=== PATIENT | female | born 1980 | race Two or more races ===

== ENCOUNTER 2019-05-08 05:07 | Inpatient (IN) | payer BC ==
[2019-05-08] MEDS ORDERED: Butorphanol 1 MG/ML SDV IVPUSH PRN (05:11)
[2019-05-08] MEDS ORDERED: Water For Irrigation,Sterile 1,000 ML Container IRR PRN (05:11)
[2019-05-08] MEDS ORDERED: Tranexamic Acid 1,000 MG in Sodium Chloride 0.9% 100 ML IV PRN ×2 (05:11→18:44)
[2019-05-08] MEDS ORDERED: Terbutaline 1 MG/ML SDV SUBCUT PRN (05:11)
[2019-05-08] MEDS ORDERED: Nalbuphine 10 MG/1 ML Vial IVPUSH PRN ×2 (05:11→19:42)
[2019-05-08] MEDS ORDERED: Methylergonovine 0.2 MG/1 ML Amp IM PRN ×2 (05:11→18:44)
[2019-05-08] MEDS ORDERED: Sodium Chloride 0.9% 2.5 ML Syringe FLUSH PRN (05:11)
[2019-05-08] MEDS ORDERED: Ondansetron 4 MG/2 ML SDV IVPUSH PRN ×2 (05:11→18:44)
[2019-05-08] MEDS ORDERED: Misoprostol 200 MCG Tab PO PRN (05:11)
[2019-05-08] MEDS ORDERED: Sodium Chloride 0.9% 10 ML Syringe FLUSH PRN (05:11)
[2019-05-08] MEDS ORDERED: Sodium Chloride 0.9% 10 ML SDV IV PRN (05:11)
[2019-05-08] MEDS ORDERED: Lidocaine 1% 50 ML MDV INJECT PRN (05:11)
[2019-05-08] MEDS ORDERED: Carboprost Tromethamine 250 MCG/1 ML Amp IM PRN (05:11)
[2019-05-08] MEDS ORDERED: Oxytocin/0.9 % Sodium Chloride 30 UNIT/500 ML BAG IV SCH ×2 (05:15)
[2019-05-08] MEDS: Lactated Ringers 1,000 ML IV SCH ×4 (05:40→21:38)
--- NOTE | 2019-05-08 09:23 | PCM.PREANE ---
Preanesthetic Assessment - Anesthesia/Transfusion/Family Hx Anesthesia History: No Prior Anesthesia Family History of Anesthesia Reaction: No Transfusion History: No Prior Transfusion(s) - Review of Systems General: No Symptoms Pulmonary: No Symptoms Cardiovascular: No Symptoms Gastrointestinal: No Symptoms Neurological: No Symptoms Other: Reports: None - Physical Assessment Height: 4 ft 11 in Weight: 58.151 kg ASA Class: 2 Mental Status: Alert & Oriented x3 Airway Class: Mallampati = 2 Dentition: Reports: Normal Dentition Thyro-Mental Finger Breadths: 3 Mouth Opening Finger Breadths: 3 ROM/Head Extension: Full Lungs: Clear to Auscultation, Normal Respiratory Effort Cardiovascular: Regular Rate, Regular Rhythm - Lab Values: Laboratory Last Values WBC 8.64 K/uL (4.0-11.0) 05/08/19 05:40 RBC 3.83 M/uL (4.30-5.90) L 05/08/19 05:40 Hgb 11.6 g/dL (12.0-16.0) L 05/08/19 05:40 Hct 34.6 % (36.0-46.0) L 05/08/19 05:40 MCV 90.3 fL (80.0-98.0) 05/08/19 05:40 MCH 30.3 pg (27.0-32.0) 05/08/19 05:40 MCHC 33.5 g/dL (31.0-37.0) 05/08/19 05:40 RDW Std Deviation 44.1 fl (28.0-62.0) 05/08/19 05:40 RDW Coeff of Makenzie 14 % (11.0-15.0) 05/08/19 05:40 Plt Count 257 K/uL (150-400) 05/08/19 05:40 MPV 11.30 fL (7.40-12.00) 05/08/19 05:40 Nucleated RBC % 0.0 /100WBC 05/08/19 05:40 Nucleated RBCs # 0 K/uL 05/08/19 05:40 POC Glucose 77 mg/dL (60-110) 05/08/19 09:03 Blood Type B POSITIVE 05/08/19 05:40 Antibody Screen NEGATIVE 05/08/19 05:40 - Allergies Allergies/Adverse Reactions: Allergies Allergy/AdvReac Type Severity Reaction Status Date / Time No Known Allergies Allergy Verified 05/08/19 05:49 - Acknowledgements Anesthesia Type Planned: Epidural Pt an Appropriate Candidate for the Planned Anesthesia: Yes Alternatives and Risks of Anesthesia Discussed w Pt/Guardian: Yes Pt/Guardian Understands and Agrees with Anesthesia Plan: Yes PreAnesthesia Questionnaire HEENT History: Reports: None Cardiovascular History: Reports: None Respiratory History: Reports: None Gastrointestinal History: Reports: GERD, Hemorrhoids Genitourinary History: Reports: Other (See Below) Other Genitourinary History: occasional UTI for a while, but not recently 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: , Spontaneous : 3 Para: 1 LMP (Approximate): Musculoskeletal History: Reports: None Neurological History: Reports: None Psychiatric History: Reports: None Endocrine/Metabolic History: Reports: Diabetes, Gestational Hematologic History: Reports: None Immunologic History: Reports: None Oncologic (Cancer) History: Reports: None Dermatologic History: Reports: Other (See Below) Other Dermatologic History: moles - Infectious Disease History Infectious Disease History: Reports: Chicken Pox - Past Surgical History Head Surgeries/Procedures: Reports: None HEENT Surgical History: Reports: Other (See Below) Other HEENT Surgeries/Procedures: wisdom tooth extraction GI Surgical History: Reports: None Female Surgical History: Reports: Breast Biopsy, Other (See Below) Other Female Surgeries/Procedures: lumpectomy on right breast Endocrine Surgical History: Reports: None Dermatological Surgical History: Reports: Other (See Below) - SUBSTANCE USE Smoking Status *Q: Never Smoker Second Hand Smoke Exposure: No Recreational Drug Use History: No - HOME MEDS Home Medications: Home Meds Docusate Sodium [Colace] 100 mg PO BID PRN 05/08/19 [History] Polyethylene Glycol 3350 [MiraLAX] 17 gm PO DAILY 05/08/19 [History] Vits #93/Iron Fum/FA [ Formula Tablet] 1 each PO DAILY [History] - CURRENT (IN HOUSE) MEDS Current Meds: Current Medications Butorphanol Tartrate (Stadol) 1 mg IVPUSH Q1H PRN PRN Reason: Pain Carboprost Tromethamine (Hemabate Ds) 250 mcg IM ASDIRECTED PRN PRN Reason: Post Hemorrhage Lactated Ringer's (Ringers, Lactated) 1,000 mls @ 150 mls/hr IV ASDIRECTED NIKKY Last Admin: 05/08/19 09:15 Dose: 999 mls/hr Oxytocin/Sodium Chloride (Oxytocin 30 Unit/500 Ml-Ns) 30 unit in 500 mls @ 999 mls/hr IV TITRATE NIKKY Oxytocin/Sodium Chloride (Oxytocin 30 Unit/500 Ml-Ns) 30 unit in 500 mls @ 2 mls/hr IV TITRATE NIKKY; Protocol Last Titration: 05/08/19 07:57 Dose: 8 munits/min, 8 mls/hr Tranexamic Acid 1,000 mg/ (Sodium Chloride) 110 mls @ 660 mls/hr IV ONETIME PRN PRN Reason: Bleeding Lidocaine HCl (Xylocaine 1%) 50 ml INJECT ONETIME PRN PRN Reason: Laceration repair Methylergonovine Maleate (Methergine) 0.2 mg IM ASDIRECTED PRN PRN Reason: Post Hemorrhage Misoprostol (Cytotec) 200 mcg PO ONETIME PRN PRN Reason: Post Hemorrhage Nalbuphine HCl (Nubain) 10 mg IVPUSH Q1H PRN PRN Reason: Pain (severe 7-10) Ondansetron HCl (Zofran) 4 mg IVPUSH Q6H PRN PRN Reason: Nausea/Vomiting Sodium Chloride (Saline Flush) 10 ml FLUSH ASDIRECTED PRN PRN Reason: Keep Vein Open Sodium Chloride (Saline Flush) 2.5 ml FLUSH ASDIRECTED PRN PRN Reason: Keep Vein Open Sodium Chloride (Normal Saline) 10 ml IV ASDIRECTED PRN PRN Reason: IV Use Sterile Water (Sterile Water For Irrigation) 1,000 ml IRR ASDIRECTED PRN PRN Reason: delivery Terbutaline Sulfate (Brethine) 0.25 mg SUBCUT ASDIRECTED PRN PRN Reason: Tacysystole
[2019-05-08] MEDS ORDERED: Bupivicaine/fentaNYL/NS 250 ML ONE (09:25)
[2019-05-08] MEDS ORDERED: Bupivacaine 0.5% 10 ML SDV ONE (18:03)
[2019-05-08] MEDS ORDERED: Sodium Chloride 0.9% 20 ML ONE ×2 (18:11→18:15)
[2019-05-08] MEDS ORDERED: ceFAZolin 1 GM Vial ONE (18:11)
[2019-05-08] MEDS ORDERED: Ondansetron 4 MG/2 ML SDV ONE (18:11)
[2019-05-08] MEDS ORDERED: Oxytocin 10 Units/1 ML SDV ONE (18:11)
[2019-05-08] MEDS ORDERED: ePHEDrine 50 MG/ML SDV ONE (18:15)
[2019-05-08] MEDS ORDERED: Morphine PF 10 MG/10 ML SDV ONE (18:17)
[2019-05-08] MEDS ORDERED: Octyl 2-Cyanoacrylate 1 Tube ONE (18:19)
[2019-05-08] MEDS ORDERED: Bisacodyl 10 MG Supp RECTAL PRN (18:44)
[2019-05-08] MEDS ORDERED: Acetaminophen/oxyCODONE 325-5 MG Tab PO PRN (18:44)
[2019-05-08] MEDS ORDERED: Lanolin 100% Cream 7 GM Tube TOP PRN (18:44)
[2019-05-08] MEDS ORDERED: diphenhydrAMINE 50 MG/ML SDV IVPUSH PRN ×2 (18:44→19:42)
[2019-05-08] MEDS ORDERED: Oxytocin 10 Units/1 ML SDV IM PRN (18:44)
[2019-05-08] MEDS ORDERED: Misoprostol 200 MCG Tab RECTAL PRN (18:44)
[2019-05-08] MEDS ORDERED: Lactated Ringers 1,000 ML IV SCH (18:45)
[2019-05-08] MEDS ORDERED: Oxytocin/Lactated Ringers 30 UNIT/500 ML BAG IV SCH (18:45)
--- NOTE | 2019-05-08 18:51 | PCM.OPNOTE ---
- General Post-Op/Procedure Note Date of Surgery/Procedure: 05/08/19 Operative Procedure(s): primary low transverse Findings: Liveborn female 9/10 weight 6#5 oz, normal pelvis Pre Op Diagnosis: 39 4/7 weeks, gestational diabetes, arrest of descent, intolerance to labor. Post-Op Diagnosis: Same Anesthesia Technique: Epidural Primary Surgeon: Velma Moeller Secondary Surgeon: Mounika Hussein Pathology: placenta to pathology. Fluid Replacement, Intraop: 600 EBL in mLs: 400 Complications: None Known Condition: Good
[2019-05-08] MEDS: Ketorolac 30 MG/ML SDV IVPUSH SCH (19:13)
[2019-05-08] MEDS ORDERED: Naloxone 0.4 MG/ML Syringe IVPUSH PRN (19:42)
--- NOTE | 2019-05-08 19:53 | PCM.POSTAN ---
POST ANESTHESIA ASSESSMENT - MENTAL STATUS Mental Status: Alert, Oriented - VITAL SIGNS Vital Signs: Last Vital Signs Temp 97.5 F 05/08/19 19:02 Pulse 100 05/08/19 19:32 Resp 18 05/08/19 19:32 BP 107/65 05/08/19 19:32 Pulse Ox 98 05/08/19 19:32 - RESPIRATORY Respiratory Status: Respiratory Rate WNL, Airway Patent, O2 Saturation Stable - CARDIOVASCULAR CV Status: Pulse Rate WNL, Blood Pressure Stable - GASTROINTESTINAL GI Status: No Symptoms - PAIN Pain Score: 1 - POST OP HYDRATION Hydration Status: Adequate & Stable
--- NOTE | 2019-05-08 20:18 | OR ---
SURGEON: Velma Moeller M.D. DATE OF PROCEDURE: 05/08/2019 PREOPERATIVE DIAGNOSES: 1. A 39-4/7-week intrauterine . 2. Arrest of descent. 3. Gestational diabetes. 4. intolerance to labor. POSTOPERATIVE DIAGNOSES: 1. A 39-4/7-week intrauterine . 2. Arrest of descent. 3. Gestational diabetes. 4. intolerance to labor. PROCEDURE: Primary low-transverse section. PRIMARY SURGEON: Velma Moeller M.D. YOKER MACHINE OPERATOR: Celia Hussein, mailing machine assistant student. ANESTHESIA: Epidural. ESTIMATED BLOOD LOSS: 400 mL. FLUIDS: 600 mL of crystalloid. FINDINGS: Liveborn female. score 9 and 10, weighing 6 pounds 5 ounces. Normal- appearing uterus, tubes, and ovaries. COMPLICATIONS: None known. DISPOSITION: Stable to Recovery. BRIEF HISTORY: This is a 39-year-old female, G2, P0, presents at 39-4/7 weeks gestation for induction of labor for gestational diabetes. She has had excellent control with diet alone. She initially was 2 to 3 cm dilated. She was started on Pitocin when she was 4 cm, 80%, -1 station. She had artificial rupture of membranes performed. She received an epidural for pain control which worked excellent throughout her labor, and she progressed to complete. She pushed over a 2-1/2- hour time period with at least 2 episodes of waiting due to abnormal heart tones. She had no descent beyond a -1 station, and due to recurrent deep late decelerations in addition to arrest of descent, I offered her a primary low- transverse section which she agreed with. Risks discussed including bleeding, infection, injury to bowel, bladder, blood vessels, or other organs, risk of thromboembolic event, and risk of anesthesia. Understanding all of these risks, she does desire to proceed. DESCRIPTION OF PROCEDURE: With the patient in left tilt position, under adequate epidural analgesia, the abdomen was prepped with chlorhexidine and draped in the usual fashion for abdominal surgery. SCDs were in place. Bonilla catheter had been placed, and an appropriate time-out was held. She received 1 g of Ancef IV. After documentation of adequate analgesia, a transverse curvilinear incision was made 2 cm cephalad from the pubic symphysis and carried through the subcutaneous tissue to the fascia, which was scored transversely in the midline. The fascial incision was extended laterally using curved Hussein scissors. The fascia was elevated from the underlying rectus muscle using sharp and blunt dissection. The rectus muscles were bluntly in the midline. A finger was used to enter the peritoneal cavity. The incision was extended bluntly. The Guero O C- section retractor was placed. The visceroperitoneum over the lower uterine segment was incised to develop an adequate bladder flap. A transverse curvilinear incision was made over the lower uterine segment. A finger was used to enter the amniotic cavity. Clear fluid was noted. The incision was extended with cephalad and caudad traction, and the head was elevated and delivered via the uterine incision with fundal pressure with subsequent delivery of the 's shoulders and body without difficulty. The infant was bulb suctioned by nose and mouth and after 1 minute, the cord was doubly clamped and cut. The was handed to the nurse in attendance at delivery. The infant is a liveborn female, score of 9 and 10, weighing 6 pounds 5 ounces. Cord blood was collected for cord ABGs as well as routine cord blood sampling. Pitocin had been initiated after delivery of the infant to assist with delivery of the placenta which was delivered spontaneously, Schultze intact with 3 vessels. The cord itself, however, had a very tortuous appearance, and the placenta was sent to Pathology. The uterus was cleaned with a dry laparotomy tape. The cervix had been fully dilated, and the uterine incision was closed with a running locked suture of 0 Polysorb followed by an imbricating layer of 0 Polysorb. The rectus muscle and peritoneum were loosely approximated in the midline using a running mattress suture of 0 Polysorb, and the posterior aspect of the fascia was inspected and areas of bleeding that were noted were cauterized. The fascial incision was closed with a running suture of 0 Polysorb. Subcutaneous tissue was copiously irrigated. Any areas of bleeding that were noted were cauterized. Final sponge, needle, and instrument counts were reported as correct. There were no known complications. The skin was closed with a running subcuticular suture of 3-0 Monocryl followed by Dermabond. Mother and baby are in LDR in good condition. DARNELL / JEREMIAS /[id number]
[2019-05-09] MEDS: Ketorolac 30 MG/ML SDV IVPUSH SCH ×4 (00:57→19:50)
[2019-05-09 06:48] LABS: BLOOD UREA NITROGEN,BUN 6 mg/dL (7.0-18.0); CARBON DIOXIDE,CO2 25.5 mmol/L (21.0-32.0); CHLORIDE,CL 106 mmol/L (98-107); GLUCOSE RANDOM 111 mg/dL (74-106); POTASSIUM,K 3.6 mmol/L (3.5-5.1); SODIUM,NA 139 mmol/L (136-145)
--- NOTE | 2019-05-09 07:02 | PCM48HPAN ---
Post Anesthesia Note - EVALUATION WITHIN 48HRS OF ANESTHETIC Vital Signs in Normal Range: Yes Patient Participated in Evaluation: Yes Respiratory Function Stable: Yes Airway Patent: Yes Cardiovascular Function Stable: Yes Hydration Status Stable: Yes Pain Control Satisfactory: Yes Nausea and Vomiting Control Satisfactory: Yes Mental Status Recovered: Yes Vital Signs: Last Vital Signs Temp 98.2 F 05/09/19 04:30 Pulse 76 05/09/19 04:30 Resp 14 05/09/19 06:00 BP 108/59 L 05/09/19 04:30 Pulse Ox 97 05/09/19 06:00
[2019-05-09] MEDS: Docusate Sodium 100 MG Cap PO SCH ×3 (07:13→22:46)
--- NOTE | 2019-05-09 08:08 | PCM.PNPP ---
- General Info Date of Service: 05/09/19 Functional Status: Reports: Pain Controlled, Tolerating Diet, Ambulating, Urinating - Review of Systems General: Reports: No Symptoms HEENT: Reports: No Symptoms Pulmonary: Reports: No Symptoms Cardiovascular: Reports: No Symptoms Gastrointestinal: Reports: No Symptoms Genitourinary: Reports: No Symptoms Musculoskeletal: Reports: No Symptoms Skin: Reports: No Symptoms Neurological: Reports: No Symptoms Psychiatric: Reports: No Symptoms - Patient Data Vital Signs - Most Recent: Last Vital Signs Temp 36.8 C 05/09/19 04:30 Pulse 86 05/09/19 07:00 Resp 15 05/09/19 07:00 BP 92/55 L 05/09/19 07:00 Pulse Ox 100 05/09/19 07:00 Weight - Most Recent: 58.151 kg I&O - Last 24 Hours: Intake & Output 05/08/19 05/09/19 05/09/19 22:59 06:59 14:59 Intake Total 2300 Output Total 300 2150 Balance 1999 -2149 Lab Results - Last 24 Hours: Laboratory Results - last 24 hr 05/08/19 05/08/19 05/08/19 Range/Units 09:03 11:21 13:11 Hgb (12.0-16.0) g/dL Hct (36.0-46.0) % Cord ABG pH (7.18-7.38) Cord ABG Base Excess (-10--2) Cord VBG pH (7.25-7.45) Cord VBG Base Excess (-10--2) Sodium (136-145) mmol/L Potassium (3.5-5.1) mmol/L Chloride (98-107) mmol/L Carbon Dioxide (21.0-32.0) mmol/L BUN (7.0-18.0) mg/dL Creatinine (0.6-1.0) mg/dL Est Cr Clr Drug Dosing mL/min Estimated GFR (MDRD) ml/min Glucose (74-106) mg/dL POC Glucose 77 90 106 (60-110) mg/dL Calcium (8.5-10.1) mg/dL 05/08/19 05/08/19 05/09/19 Range/Units 16:55 18:27 05:46 Hgb 9.7 L (12.0-16.0) g/dL Hct 28.9 L (36.0-46.0) % Cord ABG pH 7.331 (7.18-7.38) Cord ABG Base Excess -3 (-10--2) Cord VBG pH 7.311 (7.25-7.45) Cord VBG Base Excess -5 (-10--2) Sodium (136-145) mmol/L Potassium (3.5-5.1) mmol/L Chloride (98-107) mmol/L Carbon Dioxide (21.0-32.0) mmol/L BUN (7.0-18.0) mg/dL Creatinine (0.6-1.0) mg/dL Est Cr Clr Drug Dosing mL/min Estimated GFR (MDRD) ml/min Glucose (74-106) mg/dL POC Glucose 70 (60-110) mg/dL Calcium (8.5-10.1) mg/dL 05/09/19 05/09/19 Range/Units 05:46 05:46 Hgb (12.0-16.0) g/dL Hct (36.0-46.0) % Cord ABG pH (7.18-7.38) Cord ABG Base Excess (-10--2) Cord VBG pH (7.25-7.45) Cord VBG Base Excess (-10--2) Sodium 139 (136-145) mmol/L Potassium 3.6 (3.5-5.1) mmol/L Chloride 106 (98-107) mmol/L Carbon Dioxide 25.5 (21.0-32.0) mmol/L BUN 6 L (7.0-18.0) mg/dL Creatinine 0.6 (0.6-1.0) mg/dL Est Cr Clr Drug Dosing 92.21 mL/min Estimated GFR (MDRD) > 60.0 ml/min Glucose 111 H (74-106) mg/dL POC Glucose 109 (60-110) mg/dL Calcium 8.1 L (8.5-10.1) mg/dL Med Orders - Current: Current Medications Bisacodyl (Dulcolax) 10 mg RECTAL ONETIME PRN PRN Reason: Constipation Diphenhydramine HCl (Benadryl) 25 mg IVPUSH Q6H PRN PRN Reason: Itching or Nausea Diphenhydramine HCl (Benadryl) 25 mg IVPUSH Q4H PRN PRN Reason: Itching Stop: 05/09/19 19:43 Docusate Sodium (Colace) 100 mg PO BID [facility] Last Admin: 05/09/19 07:13 Dose: 100 mg Emollient Ointment (Lansinoh Hpa) 0 gm TOP ASDIRECTED PRN PRN Reason: Sore Nipples Lactated Ringer's (Ringers, Lactated) 1,000 mls @ 125 mls/hr IV ASDIRECTED NIKKY Oxytocin/Lactated Ringer's (Pitocin In Lr 30 Units/500 Ml) 30 unit in 500 mls @ 250 mls/hr IV TITRATE [facility]; Protocol Tranexamic Acid 1,000 mg/ (Sodium Chloride) 110 mls @ 660 mls/hr IV ONETIME PRN PRN Reason: Bleeding Ibuprofen (Motrin) 800 mg PO Q8H PRN PRN Reason: mild pain or fever Ketorolac Tromethamine (Toradol) 30 mg IVPUSH Q6H [facility] Stop: 05/09/19 19:01 Last Admin: 05/09/19 07:13 Dose: 30 mg Methylergonovine Maleate (Methergine) 0.2 mg IM ONETIME PRN PRN Reason: Excessive Vaginal Bleeding Misoprostol (Cytotec) 1,000 mcg RECTAL ONETIME PRN PRN Reason: excessive bleeding Nalbuphine HCl (Nubain) 5 mg IVPUSH Q3H PRN PRN Reason: Pruritis Stop: 05/09/19 19:43 Naloxone HCl (Narcan) 0.1 mg IVPUSH ONETIME PRN PRN Reason: Respiratory Depression Stop: 05/09/19 19:43 Ondansetron HCl (Zofran) 4 mg IVPUSH Q4H PRN PRN Reason: Nausea/Vomiting Oxycodone/Acetaminophen (Percocet 325-5 Mg) 1 tab PO Q4H PRN PRN Reason: Pain (moderate 4-6) Oxycodone/Acetaminophen (Percocet 325-5 Mg) 2 tab PO Q4H PRN PRN Reason: Pain (moderate 4-6) Oxytocin (Pitocin) 10 unit IM ASDIRECTED PRN PRN Reason: Excessive Vaginal Bleeding Discontinued Medications Bupivacaine HCl (Sensorcaine-Mpf 0.5%) Confirm Administered Dose 20 ml .ROUTE .STK-MED ONE Stop: 05/08/19 18:04 Butorphanol Tartrate (Stadol) 1 mg IVPUSH Q1H PRN PRN Reason: Pain Carboprost Tromethamine (Hemabate Ds) 250 mcg IM ASDIRECTED PRN PRN Reason: Post Hemorrhage Cefazolin Sodium (Ancef) Confirm Administered Dose 1 gm .ROUTE .STK-MED ONE Stop: 05/08/19 18:12 Ephedrine Sulfate (Ephedrine Sulfate) Confirm Administered Dose 50 mg .ROUTE .STK-MED ONE Stop: 05/08/19 18:16 Lactated Ringer's (Ringers, Lactated) 1,000 mls @ 150 mls/hr IV ASDIRECTED NIKKY Last Admin: 05/08/19 21:38 Dose: 150 mls/hr Oxytocin/Sodium Chloride (Oxytocin 30 Unit/500 Ml-Ns) 30 unit in 500 mls @ 999 mls/hr IV TITRATE NIKKY Oxytocin/Sodium Chloride (Oxytocin 30 Unit/500 Ml-Ns) 30 unit in 500 mls @ 2 mls/hr IV TITRATE NIKKY; Protocol Last Titration: 05/08/19 17:00 Dose: 14 munits/min, 14 mls/hr Tranexamic Acid 1,000 mg/ (Sodium Chloride) 110 mls @ 660 mls/hr IV ONETIME PRN PRN Reason: Bleeding Fentanyl/Bupivacaine HCl (Fentanyl/Bupivacaine/Ns 2 Mcg-0.125% 250 Ml) Confirm Administered Dose 250 mls @ as directed .ROUTE .STK-MED ONE Stop: 05/08/19 09:26 Sodium Chloride (Normal Saline) Confirm Administered Dose 20 mls @ as directed .ROUTE .STK-MED ONE Stop: 05/08/19 18:12 Sodium Chloride (Normal Saline) Confirm Administered Dose 20 mls @ as directed .ROUTE .STK-MED ONE Stop: 05/08/19 18:16 Lidocaine HCl (Xylocaine 1%) 50 ml INJECT ONETIME PRN PRN Reason: Laceration repair Methylergonovine Maleate (Methergine) 0.2 mg IM ASDIRECTED PRN PRN Reason: Post Hemorrhage Misoprostol (Cytotec) 200 mcg PO ONETIME PRN PRN Reason: Post Hemorrhage Morphine Sulfate (Duramorph Pf) Confirm Administered Dose 10 mg .ROUTE .STK-MED ONE Stop: 05/08/19 18:18 Nalbuphine HCl (Nubain) 10 mg IVPUSH Q1H PRN PRN Reason: Pain (severe 7-10) Octyl Cyanoacrylate (Dermabond Advance) Confirm Administered Dose 1 applic .ROUTE .STK-MED ONE Stop: 05/08/19 18:20 Ondansetron HCl (Zofran) 4 mg IVPUSH Q6H PRN PRN Reason: Nausea/Vomiting Ondansetron HCl (Zofran) Confirm Administered Dose 4 mg .ROUTE .STK-MED ONE Stop: 05/08/19 18:12 Oxytocin (Pitocin) Confirm Administered Dose 30 unit .ROUTE .STK-MED ONE Stop: 05/08/19 18:12 Sodium Chloride (Saline Flush) 10 ml FLUSH ASDIRECTED PRN PRN Reason: Keep Vein Open Sodium Chloride (Saline Flush) 2.5 ml FLUSH ASDIRECTED PRN PRN Reason: Keep Vein Open Sodium Chloride (Normal Saline) 10 ml IV ASDIRECTED PRN PRN Reason: IV Use Sterile Water (Sterile Water For Irrigation) 1,000 ml IRR ASDIRECTED PRN PRN Reason: delivery Terbutaline Sulfate (Brethine) 0.25 mg SUBCUT ASDIRECTED PRN PRN Reason: Tacysystole - Infant Interaction Infant Disposition, : [place] in Room with Family Interaction: Holding Infant Feeding: Breastfed ; Nursed Well Support Person: - Recovery Exam Fundal Tone: Firm Fundal Level: 1 Fingerbreadths Below Umbilicus Fundal Placement: Midline Lochia Amount: Scant Lochia Color: Rubra/Red Perineum Description: Intact, Minimal Bruising/Swelling, Edematous Episiotomy/Laceration: None Urinary Elimination: Indwelling Catheter - Exam General: Alert, Oriented HEENT: Pupils Equal Neck: Supple Lungs: Clear to Auscultation, Normal Respiratory Effort Cardiovascular: Regular Rate, Regular Rhythm GI/Abdominal Exam: Normal Bowel Sounds, Soft, Non-Tender, No Organomegaly, No Distention Extremities: Normal Inspection, Non-Tender, No Pedal Edema Skin: Warm, Dry, Intact Wound/Incisions: Dressing Dry and Intact Neurological: No New Focal Deficit Psy/Mental Status: Alert, Normal Affect, Normal Mood - Problem List & Annotations (1) Gestational diabetes mellitus (GDM) affecting SNOMED Code(s): 57130097789789 Code(s): O24.419 - GESTATIONAL DIABETES MELLITUS IN , UNSP CONTROL Status: Acute Current Visit: Yes (2) Arrest of descent, delivered, current hospitalization SNOMED Code(s): 59027538, 445846961 Code(s): O62.1 - SECONDARY UTERINE INERTIA Status: Acute Current Visit: Yes (3) delivery delivered SNOMED Code(s): 832728177 Code(s): O82 - ENCOUNTER FOR DELIVERY WITHOUT INDICATION Status: Acute Current Visit: Yes - Problem List Review Problem List Initiated/Reviewed/Updated: Yes - My Orders Last 24 Hours: My Active Orders 05/08/19 18:44 Patient Status [ADT] Routine Ambulate [RC] PER UNIT ROUTINE Antiembolic Devices [RC] PER UNIT ROUTINE Communication Order [RC] PER UNIT ROUTINE Communication Order [RC] PER UNIT ROUTINE Communication Order [RC] Per Unit Routine May Shower [RC] ASDIRECTED RT Incentive Spirometry [RC] Q2HWA Acetaminophen/oxyCODONE [Percocet 325-5 MG] 1 tab PO Q4H PRN Acetaminophen/oxyCODONE [Percocet 325-5 MG] 2 tab PO Q4H PRN Bisacodyl [Dulcolax] 10 mg RECTAL ONETIME PRN Lanolin [Lansinoh HPA] See Dose Instructions TOP ASDIRECTED PRN Methylergonovine [Methergine] 0.2 mg IM ONETIME PRN Ondansetron [Zofran] 4 mg IVPUSH Q4H PRN Oxytocin [Pitocin] 10 unit IM ASDIRECTED PRN Tranexamic Acid [Cyklokapron] 1,000 mg Sodium Chloride 0.9% [Normal Saline] 100 ml IV ONETIME diphenhydrAMINE [Benadryl] 25 mg IVPUSH Q6H PRN miSOPROStoL [Cytotec] 1,000 mcg RECTAL ONETIME PRN Abdominal Binder [OM.PC] Urgent Assess Lochia [WOMSER] Per Unit Routine Assess Uterine Involution [WOMSER] Per Unit Routine Breast Pump [WOMSER] Per Unit Routine Peripheral IV Discontinue [OM.PC] Routine Sequential Compression Device [OM.PC] Per Unit Routine Resuscitation Status Routine 05/08/19 18:45 Notify Provider Vital Signs [RC] ASDIRECTED Lactated Ringers [Ringers, Lactated] 1,000 ml IV ASDIRECTED Oxytocin/Lactated Ringers [Pitocin in LR 30 Units/500 ML] 30 unit in 500 ml IV TITRATE 05/08/19 18:46 Notify Provider Intake and Out [RC] ASDIRECTED 05/08/19 19:00 Ketorolac [Toradol] 30 mg IVPUSH Q6H 05/08/19 21:00 Docusate Sodium [Colace] 100 mg PO BID 05/09/19 Breakfast Regular Diet [DIET] 05/10/19 01:00 Ibuprofen [Motrin] 800 mg PO Q8H PRN - Assessment Assessment:: POD#1 after primary for arrest of descent. Stable minimal lochia, minimal pain. Glucose 111 this am. Will continue with care.
[2019-05-10] MEDS: Acetaminophen/oxyCODONE 325-5 MG Tab PO PRN ×3 (00:08→09:25)
[2019-05-10] MEDS ORDERED: Ibuprofen 800 MG Tab PO PRN (01:00)
--- NOTE | 2019-05-10 08:19 | PCM.PNPP ---
- General Info Date of Service: 05/10/19 Functional Status: Reports: Pain Controlled, Tolerating Diet, Ambulating, Urinating, Other (Passing flatus, no BM so far. Taking stool softeners) - Review of Systems General: Reports: No Symptoms HEENT: Reports: No Symptoms Pulmonary: Reports: No Symptoms Cardiovascular: Reports: No Symptoms Gastrointestinal: Reports: No Symptoms Genitourinary: Reports: No Symptoms Musculoskeletal: Reports: No Symptoms Skin: Reports: No Symptoms Neurological: Reports: No Symptoms Psychiatric: Reports: No Symptoms - Patient Data Vital Signs - Most Recent: Last Vital Signs Temp 36.4 C 05/10/19 04:18 Pulse 62 05/10/19 04:18 Resp 16 05/10/19 04:18 BP 102/60 05/10/19 04:18 Pulse Ox 98 05/10/19 04:18 Weight - Most Recent: 128 lb 3.2 oz Lab Results - Last 24 Hours: Laboratory Results - last 24 hr 05/08/19 Range/Units 05:40 RPR Non Reactive (NonRea<1:1) Med Orders - Current: Current Medications Bisacodyl (Dulcolax) 10 mg RECTAL ONETIME PRN PRN Reason: Constipation Diphenhydramine HCl (Benadryl) 25 mg IVPUSH Q6H PRN PRN Reason: Itching or Nausea Docusate Sodium (Colace) 100 mg PO BID NIKKY Last Admin: 05/09/19 22:46 Dose: Not Given Emollient Ointment (Lansinoh Hpa) 0 gm TOP ASDIRECTED PRN PRN Reason: Sore Nipples Lactated Ringer's (Ringers, Lactated) 1,000 mls @ 125 mls/hr IV ASDIRECTED NIKKY Oxytocin/Lactated Ringer's (Pitocin In Lr 30 Units/500 Ml) 30 unit in 500 mls @ 250 mls/hr IV TITRATE NIKKY; Protocol Tranexamic Acid 1,000 mg/ (Sodium Chloride) 110 mls @ 660 mls/hr IV ONETIME PRN PRN Reason: Bleeding Ibuprofen (Motrin) 800 mg PO Q8H PRN PRN Reason: mild pain or fever Last Admin: 05/10/19 04:33 Dose: 800 mg Methylergonovine Maleate (Methergine) 0.2 mg IM ONETIME PRN PRN Reason: Excessive Vaginal Bleeding Misoprostol (Cytotec) 1,000 mcg RECTAL ONETIME PRN PRN Reason: excessive bleeding Ondansetron HCl (Zofran) 4 mg IVPUSH Q4H PRN PRN Reason: Nausea/Vomiting Oxycodone/Acetaminophen (Percocet 325-5 Mg) 1 tab PO Q4H PRN PRN Reason: Pain (moderate 4-6) Oxycodone/Acetaminophen (Percocet 325-5 Mg) 2 tab PO Q4H PRN PRN Reason: Pain (moderate 4-6) Last Admin: 05/10/19 04:33 Dose: 2 tab Oxytocin (Pitocin) 10 unit IM ASDIRECTED PRN PRN Reason: Excessive Vaginal Bleeding Discontinued Medications Bupivacaine HCl (Sensorcaine-Mpf 0.5%) Confirm Administered Dose 20 ml .ROUTE .STK-MED ONE Stop: 05/08/19 18:04 Butorphanol Tartrate (Stadol) 1 mg IVPUSH Q1H PRN PRN Reason: Pain Carboprost Tromethamine (Hemabate Ds) 250 mcg IM ASDIRECTED PRN PRN Reason: Post Hemorrhage Cefazolin Sodium (Ancef) Confirm Administered Dose 1 gm .ROUTE .STK-MED ONE Stop: 05/08/19 18:12 Diphenhydramine HCl (Benadryl) 25 mg IVPUSH Q4H PRN PRN Reason: Itching Stop: 05/09/19 19:43 Ephedrine Sulfate (Ephedrine Sulfate) Confirm Administered Dose 50 mg .ROUTE .STK-MED ONE Stop: 05/08/19 18:16 Lactated Ringer's (Ringers, Lactated) 1,000 mls @ 150 mls/hr IV ASDIRECTED NIKKY Last Admin: 05/08/19 21:38 Dose: 150 mls/hr Oxytocin/Sodium Chloride (Oxytocin 30 Unit/500 Ml-Ns) 30 unit in 500 mls @ 999 mls/hr IV TITRATE NIKKY Oxytocin/Sodium Chloride (Oxytocin 30 Unit/500 Ml-Ns) 30 unit in 500 mls @ 2 mls/hr IV TITRATE NIKKY; Protocol Last Titration: 05/08/19 17:47 Dose: 0 munits/min, 0 mls/hr Tranexamic Acid 1,000 mg/ (Sodium Chloride) 110 mls @ 660 mls/hr IV ONETIME PRN PRN Reason: Bleeding Fentanyl/Bupivacaine HCl (Fentanyl/Bupivacaine/Ns 2 Mcg-0.125% 250 Ml) Confirm Administered Dose 250 mls @ as directed .ROUTE .STK-MED ONE Stop: 05/08/19 09:26 Sodium Chloride (Normal Saline) Confirm Administered Dose 20 mls @ as directed .ROUTE .STK-MED ONE Stop: 05/08/19 18:12 Sodium Chloride (Normal Saline) Confirm Administered Dose 20 mls @ as directed .ROUTE .STK-MED ONE Stop: 05/08/19 18:16 Ketorolac Tromethamine (Toradol) 30 mg IVPUSH Q6H NIKKY Stop: 05/09/19 19:01 Last Admin: 05/09/19 19:50 Dose: 30 mg Lidocaine HCl (Xylocaine 1%) 50 ml INJECT ONETIME PRN PRN Reason: Laceration repair Methylergonovine Maleate (Methergine) 0.2 mg IM ASDIRECTED PRN PRN Reason: Post Hemorrhage Misoprostol (Cytotec) 200 mcg PO ONETIME PRN PRN Reason: Post Hemorrhage Morphine Sulfate (Duramorph Pf) Confirm Administered Dose 10 mg .ROUTE .STK-MED ONE Stop: 05/08/19 18:18 Nalbuphine HCl (Nubain) 10 mg IVPUSH Q1H PRN PRN Reason: Pain (severe 7-10) Nalbuphine HCl (Nubain) 5 mg IVPUSH Q3H PRN PRN Reason: Pruritis Stop: 05/09/19 19:43 Naloxone HCl (Narcan) 0.1 mg IVPUSH ONETIME PRN PRN Reason: Respiratory Depression Stop: 05/09/19 19:43 Octyl Cyanoacrylate (Dermabond Advance) Confirm Administered Dose 1 applic .ROUTE .STK-MED ONE Stop: 05/08/19 18:20 Ondansetron HCl (Zofran) 4 mg IVPUSH Q6H PRN PRN Reason: Nausea/Vomiting Ondansetron HCl (Zofran) Confirm Administered Dose 4 mg .ROUTE .STK-MED ONE Stop: 05/08/19 18:12 Oxytocin (Pitocin) Confirm Administered Dose 30 unit .ROUTE .STK-MED ONE Stop: 05/08/19 18:12 Sodium Chloride (Saline Flush) 10 ml FLUSH ASDIRECTED PRN PRN Reason: Keep Vein Open Sodium Chloride (Saline Flush) 2.5 ml FLUSH ASDIRECTED PRN PRN Reason: Keep Vein Open Sodium Chloride (Normal Saline) 10 ml IV ASDIRECTED PRN PRN Reason: IV Use Sterile Water (Sterile Water For Irrigation) 1,000 ml IRR ASDIRECTED PRN PRN Reason: delivery Terbutaline Sulfate (Brethine) 0.25 mg SUBCUT ASDIRECTED PRN PRN Reason: Tacysystole - Interaction Infant Disposition, : [facility] at Bedside Infant Interaction: Holding Infant Infant Feeding: Breastfed ; Nursed Well Support Person: - Recovery Exam Fundal Tone: Firm Fundal Level: At Umbilicus Fundal Placement: Midline Lochia Amount: Scant Lochia Color: Rubra/Red Perineum Description: Intact, Minimal Bruising/Swelling Episiotomy/Laceration: None Bladder Status: Voiding Urinary Elimination: Indwelling Catheter - Exam Quality Assessment: Supplemental Oxygen General: Alert, Oriented, Cooperative, No Acute Distress HEENT: Pupils Equal, Pupils Reactive, EOMI Neck: Supple, Trachea Midline, No JVD Lungs: Normal Respiratory Effort GI/Abdominal Exam: Soft, No Distention, Other (Appropriate incisional pain.) Extremities: Normal Inspection, Normal Range of Motion, Non-Tender, No Pedal Edema Skin: Warm, Dry, Intact Wound/Incisions: Healing Well, No Drainage Psy/Mental Status: Alert, Normal Affect, Normal Mood - Problem List Review Problem List Initiated/Reviewed/Updated: Yes - My Orders Last 24 Hours: My Active Orders 05/10/19 08:07 Ready for Discharge [RC] PER UNIT ROUTINE - Assessment Assessment:: POD#2 after primary for arrest of descent. With GDMA1, blood sugars stable - Plan Plan:: VSS Hgb 9.7, denies s/s of anemia, bleeding light. Advised to start iron supplements Voiding and passing flatus, continue with colace and miralax GDMA1: Fasting today 111, 2hr pc were wnl. Discussed GTT at 6wks Stable for discharge home today. Follow up in 2 and 6wks. Reviewed postop instructions
[2019-05-10] MEDS: Docusate Sodium 100 MG Cap PO SCH (09:27)
== END 2019-05-10 12:20 | disposition home or self-care (01) | DRG 540 ==
LOC: MW.OBCHECK 05:07 → MW.OB 05:09 → MW.OBCHECK 05:11 → MW.OB 05:11 → OBSVTOIN 18:44 → MW.OB 21:47
PROVIDERS: ADMIT Obstetrics & Gynecology; ATTEND Obstetrics & Gynecology
PROC: 10D00Z1 Extraction of Products of Conception, Low, Open Approach (ICD-10-PCS; principal; 2019-05-08)
PROC: 3E033VJ Introduction of Other Hormone into Peripheral Vein, Percutaneous Approach (ICD-10-PCS; 2019-05-08)
DX: O24.420 Gestational diabetes mellitus in childbirth, diet controlled (principal); O62.1 Secondary uterine inertia; Z37.0 Single live birth; Z3A.39 39 weeks gestation of pregnancy; O76 Abnormality in fetal heart rate and rhythm complicating labor and delivery
CPT/HCPCS: 01967; 36415; 51702; 59025; 80048; 82803; 82962; 85014; 85018; 85027; 86593; 86850; 86900; 86901; A9270-GY; J0690; J1885; J2270; J2405; J2590; J7120